=== PATIENT | male | born 1980 | race Caucasian/White ===

== ENCOUNTER 2020-04-22 17:40 | Emergency (ER) | payer BC ==
[~2020-04-22] VITALS: Ht 180.3 cm; Wt 77.3 kg
[2020-04-22] MEDS ORDERED: NO HOME MEDS (17:59)
[2020-04-22] MEDS ORDERED: HYDROcodone/acetaminophen 5mg/325mg tablet PO ONE (18:05)
[2020-04-22] MEDS ORDERED: HYDR-3965 PO (18:59)
--- NOTE | 2020-04-22 19:04 | NUR ---
Shiftman is in the room to apply a sugar tong splint/cast to the right wrist/forearm. Then [place] will be pending.
--- NOTE | 2020-04-22 19:24 | NUR ---
RAHEEM PAGED OUT FOR RIDE AT 19:23
--- NOTE | 2020-04-22 19:27 | NUR ---
Pt's [employer] is pending to transport him back to the [place] and Radiology is importing x-ray images onto a disc for him to take to a provider back home in [place], [place].
[2020-04-22 19:47] VITALS: BP 113/68
== END 2020-04-22 19:49 | disposition home or self-care (01) ==
LOC: ER 17:41
DX: S52.501A Unspecified fracture of the lower end of right radius, initial encounter for closed fracture (principal); M25.531 Pain in right wrist; M25.431 Effusion, right wrist; X58.XXXA Exposure to other specified factors, initial encounter; Y93.89 Activity, other specified; Y92.89 Other specified places as the place of occurrence of the external cause; Y99.8 Other external cause status
CPT/HCPCS: 29125; 73110; 99283